=== PATIENT | female | born 1970 | race Caucasian/White ===

== ENCOUNTER 2020-01-05 11:07 | Emergency (ER) | payer BC ==
[~2020-01-05] VITALS: Ht 162.6 cm; Wt 93.0 kg
--- NOTE | ~2020-01-05 | EKG ---
[facility] [address] [place], [place] [address] Draft EK completed, results pending confirmation PATIENT NAME: BETSY WILSON YESSENIA Electrocardiogram DATE OF : 70 PHYSICIAN: PRELIMINARY REPORT #: [id number] REPORT IS CONFIDENTIAL AND NOT TO BE RELEASED WITHOUT AUTHORIZATION
[~2020-01-05 11:07] MED LIST: COLACE100 MG PO; FLAGYL500 MG PO; PERCOCET 5-3251 EACH PO
[2020-01-05] MEDS ORDERED: ONDANSETRON ODT8 MG PO (11:58)
[2020-01-05] MEDS ORDERED: ATIVAN1 MG PO (11:58)
== END 2020-01-05 12:28 | disposition home or self-care (01) ==
LOC: ED 11:07
DX: H83.09 Labyrinthitis, unspecified ear (principal); Z87.891 Personal history of nicotine dependence
CPT/HCPCS: 80053; 85025; 99284-25

== ENCOUNTER 2023-01-18 05:41 | Emergency (ER) | payer BC ==
[~2023-01-18] VITALS: Ht 162.6 cm; Wt 65.0 kg
--- OUTSIDE RECORDS SUMMARY | ~2023-01-18 | XMS | Continuity of Care Document ---
Demographics + + + | Address | [address] | | | [place] [address] | + + + | Preferred Language | Unknown | + + + | Marital Status | | + + + | Latter Day Affiliation | Unknown | + + + | Race | White | + + + | Ethnic Group | Unknown | + + + Author + + + | Author | [facility] | + + + | Organization | [facility] | + + + | Address | [address] | | | [place] [address] | + + + | Phone | | + + + Care Team Providers + + + + | Care Public Housing Manager Name | Role | Phone | + + + + Unavailable | Unavailable | + + + + Allergies and Intolerances + + + + + + | date | description | facility | reaction | severity | + + + + + + | (no date) | No Known | [facility] | (no reaction) | (no severity) | | | Allergies | | | | + + + + + + Encounters No information. Functional Status No information. Immunizations No information. Medications No information. Problems + + + + | date | description | facility | + + + + | 2023-01-12 07:49 | ABNORMAL FINDINGS ON DX | [facility] | | | IMAGING OF LIVER AND BILIA | | + + + + Procedures No information. Results/Labs No information. Social History No information. Vital Signs No information."
--- OUTSIDE RECORDS SUMMARY | ~2023-01-18 | XMS | Continuity of Care Document ---
Demographics + + + | Address | [address] | | | [place] [address] | + + + | Preferred Language | Unknown | + + + | Marital Status | | + + + | [employer] Affiliation | Unknown | + + + | Race | White | + + + | Ethnic Group | Unknown | + + + Author + + + | Author | [facility] | + + + | Organization | [facility] | + + + | Address | [address] | | | [place] [address] | + + + | Phone | | + + + Care Team Providers + + + + | Care Web Merchandiser Name | Role | Phone | + [...]
[~2023-01-18 05:41] MED LIST changes: +ATIVAN1 MG PO; +ONDANSETRON ODT8 MG PO
[2023-01-18] MEDS ORDERED: CYCLOBENZAPRINE10 MG PO (06:24)
[2023-01-18] MEDS ORDERED: MELOXICAM15 MG PO (06:24)
[2023-01-18 06:38] VITALS: BP 124/74
== END 2023-01-18 06:39 | disposition home or self-care (01) ==
LOC: ED 05:41
DX: M25.512 Pain in left shoulder (principal); Z87.891 Personal history of nicotine dependence
CPT/HCPCS: 73000; 96372; 99283-25; J1885